=== PATIENT | male | born 1930 | race Caucasian/White ===

== ENCOUNTER 2017-09-04 13:34 | Emergency (ER) | payer MEDICARE ==
[2017-09-04 13:45] VITALS: RESP 18; TEMP 98.6
[2017-09-04] MEDS ORDERED: HYDROcodone/APAP 5-325MG 1 EACH TAB PO STA (14:17)
--- NOTE | 2017-09-04 14:17 | ED ---
Male Urogenital HPI - General Chief complaint: Urogenital Stated complaint: male Time Seen by Provider: 09/04/17 14:03 Source: patient, family Mode of arrival: wheelchair Limitations: no limitations - History of Present Illness Initial comments: 86-year-old male presenting with difficulty urinating, burning with urination, suprapubic abdominal pain. Patient states symptoms began last night. States he has been able to urinate but only a small amount. Admits to 25 year history of prostate cancer. Denies any current or previous chemotherapy or radiation. Denies history of urinary retention. States his urologist is Dr. Porras. [facility] here. On review of systems as noted the patient has had progressively worsening shortness of breath and states he is unable to walk distances he could previously secondary dyspnea. He denies history of COPD, CHF, DVT or PE. Denies chest pain, orthopnea, lower extremity swelling. Admits to a worsening productive cough. - Related Data Allergies Allergy/AdvReac Type Severity Reaction Status Date / Time aspirin Allergy Abdominal Verified 09/04/17 13:45 Pain Review of Systems ROS Statement: Those systems with pertinent positive or pertinent negative responses have been documented in the HPI. Review of Systems Constitutional: Denies fever, chills Eyes: Denies change in vision, Denies pain Ears, nose, mouth, throat: Denies headaches, Denies sore throat Cardiovascular: Denies chest pain. Denies palpitations Respiratory: Positive cough and shortness of breath Gastrointestinal: Positive abdominal pain. Denies nausea, vomiting, diarrhea. Genitourinary: Denies hematuria, Positive dysuria, frequency, hesitancy. Musculoskeletal: Denies pain, Denies swelling Integumentary: Denies rash Neurological: Denies headache, focal weakness, focal numbness Psychiatric: Denies anxiety, Denies depression Hematologic/Lymphatic: Denies easy bleeding or bruising ROS Other: All systems not noted in ROS Statement are negative. Past Medical History Past Medical History: Cancer, Prostate Disorder Additional Past Medical History / Comment(s): prostate ca History of Any Multi-Drug Resistant Organisms: None Reported Past Surgical History: Hernia Repair Past Psychological History: No Psychological Hx Reported Smoking Status: Light tobacco smoker Past Alcohol Use History: Daily Past Drug Use History: None Reported General Exam - General Exam Comments Initial Comments: General: Awake, alert, No acute Distress HENT: Normocephalic. Atraumatic Eyes: PERRL. EOMI. No scleral icterus. No injected conjunctiva Neck: Full ROM Chest/Lungs: Clear to auscultation bilaterally. No wheezing, rhonchi, or rales Cardiac: Regular rate, rhythm. No murmurs or rubs Abdomen/GI: Soft. TTP suprapubic area. No rebound, guarding, or rigidity. No abdominal bruit. Positive lloyds sign bilaterally Musculoskeletal: Full ROM Skin: Warm, dry, intact Neurologic: A/Ox3, no weakness, no sensory deficit, no abnormal gait, no coordination deficit Limitations: no limitations Course Vital Signs 09/04/17 09/04/17 13:41 15:59 Temperature 98.6 F Pulse Rate 102 H 94 Respiratory 18 18 Rate Blood Pressure 139/79 162/90 O2 Sat by Pulse 93 L 97 Oximetry Medical Decision Making - Medical Decision Making 86-year-old male presenting with difficulty urinating and dysuria as well as shortness of breath. On initial exam the patient is awake, alert, and in NAD. He is tachycardic with an O2 saturation of 93%. Wells PE score 2.5. Patient found to have >900 cc for his post void residual. Age-adjusted d-dimer is not elevated. Unable to pass a coud catheter. Spoke with Dr. Porras who states he will come into the hospital. Dr. Porras at bedside used cystoscopy to pass a marques. Patient's laboratory workup shows no evidence of sepsis or infection. Family at bedside, including [id number] who is an RN at bedside. Return to ED instructions as well as primary care follow up instruction given. No further emergent workup indicated. Patient has pain medications at home and does not need any additional per family. Patient instructed on follow up with Dr. Porras as well. - Lab Data Result diagrams: 09/04/17 14:30 09/04/17 14:30 Lab Results 09/04/17 09/04/17 09/04/17 Range/Units 14:30 14:30 14:30 WBC 9.3 (3.8-10.6) k/uL RBC 5.46 (4.30-5.90) m/uL Hgb 16.6 (13.0-17.5) gm/dL Hct 50.6 (39.0-53.0) % MCV 92.7 (80.0-100.0) fL MCH 30.3 (25.0-35.0) pg MCHC 32.7 (31.0-37.0) g/dL RDW 12.6 (11.5-15.5) % Plt Count 254 (150-450) k/uL Neutrophils % 79 % Lymphocytes % 13 % Monocytes % 6 % Eosinophils % 1 % Basophils % 1 % Neutrophils # 7.3 (1.3-7.7) k/uL Lymphocytes # 1.2 (1.0-4.8) k/uL Monocytes # 0.5 (0-1.0) k/uL Eosinophils # 0.1 (0-0.7) k/uL Basophils # 0.1 (0-0.2) k/uL D-Dimer 0.66 H (<0.60) mg/L FEU Sodium 144 (137-145) mmol/L Potassium 4.6 (3.5-5.1) mmol/L Chloride 106 (98-107) mmol/L Carbon Dioxide 25 (22-30) mmol/L Anion Gap 13 mmol/L BUN 8 L (9-20) mg/dL Creatinine 0.60 L (0.66-1.25) mg/dL Est GFR (CKD-EPI)AfAm >90 (>60 ml/min/1.73 sqM) Est GFR (CKD-EPI)NonAf >90 (>60 ml/min/1.73 sqM) Glucose 121 H (74-99) mg/dL Calcium 9.8 (8.4-10.2) mg/dL Troponin I (0.000-0.034) ng/mL NT-Pro-B Natriuret Pep pg/mL Urine Color Urine Appearance (Clear) Urine pH (5.0-8.0) Ur Specific [place] (1.001-1.035) Urine Protein (Negative) Urine Glucose (UA) (Negative) Urine Ketones (Negative) Urine Blood (Negative) Urine Nitrite (Negative) Urine Bilirubin (Negative) Urine Urobilinogen (<2.0) mg/dL Ur Leukocyte Esterase (Negative) Urine RBC (0-5) /hpf Urine WBC (0-5) /hpf Urine WBC Clumps (None) /hpf Urine Mucus (None) /hpf 09/04/17 09/04/17 09/04/17 Range/Units 14:30 14:30 14:30 WBC (3.8-10.6) k/uL RBC (4.30-5.90) m/uL Hgb (13.0-17.5) gm/dL Hct (39.0-53.0) % MCV (80.0-100.0) fL MCH (25.0-35.0) pg MCHC (31.0-37.0) g/dL RDW (11.5-15.5) % Plt Count (150-450) k/uL Neutrophils % % Lymphocytes % % Monocytes % % Eosinophils % % Basophils % % Neutrophils # (1.3-7.7) k/uL Lymphocytes # (1.0-4.8) k/uL Monocytes # (0-1.0) k/uL Eosinophils # (0-0.7) k/uL Basophils # (0-0.2) k/uL D-Dimer (<0.60) mg/L FEU Sodium (137-145) mmol/L Potassium (3.5-5.1) mmol/L Chloride (98-107) mmol/L Carbon Dioxide (22-30) mmol/L Anion Gap mmol/L BUN (9-20) mg/dL Creatinine (0.66-1.25) mg/dL Est GFR (CKD-EPI)AfAm (>60 ml/min/1.73 sqM) Est GFR (CKD-EPI)NonAf (>60 ml/min/1.73 sqM) Glucose (74-99) mg/dL Calcium (8.4-10.2) mg/dL Troponin I <0.012 (0.000-0.034) ng/mL NT-Pro-B Natriuret Pep 149 pg/mL Urine Color Dark Brown Urine Appearance Clear (Clear) Urine pH 5.5 (5.0-8.0) Ur Specific [place] 1.006 (1.001-1.035) Urine Protein Negative (Negative) Urine Glucose (UA) Negative (Negative) Urine Ketones Negative (Negative) Urine Blood Negative (Negative) Urine Nitrite Positive (Negative) Urine Bilirubin Negative (Negative) Urine Urobilinogen <2.0 (<2.0) mg/dL Ur Leukocyte Esterase Negative (Negative) Urine RBC 1 (0-5) /hpf Urine WBC 1 (0-5) /hpf Urine WBC Clumps Rare H (None) /hpf Urine Mucus Rare H (None) /hpf 09/04/17 14:40 EKG shows sinus rhythm with 1st degree AV block at a rate of 90 bpm with a KS interval of 254 ms. Disposition Clinical Impression: Acute urinary retention Disposition: HOME SELF-CARE Condition: Good Instructions: Marques Catheter Placement and Care (ED), Urinary Retention in Men (ED) Is patient prescribed a controlled substance at d/c from ED?: No When asked, does pt state using other controlled substances?: Yes Referrals: None,Stated [Primary Care Provider] - 1-2 days Saji Porras MD [STAFF PHYSICIAN] - 1-2 days Time of Disposition: 16:35
[2017-09-04 14:43] LABS: Basophils # (A) 0.1 k/uL (0-0.2); Basophils % (A) 1 %; Eosinophils # (A) 0.1 k/uL (0-0.7); Eosinophils % (A) 1 %; HCT 50.6 % (39.0-53.0); HGB 16.6 gm/dL (13.0-17.5); Lymphocytes # (A) 1.2 k/uL (1.0-4.8); Lymphocytes % (A) 13 %; MCH 30.3 pg (25.0-35.0); MCHC 32.7 g/dL (31.0-37.0); MCV 92.7 fL (80.0-100.0); Mean Platelet Volume 7.1; Monocytes # (A) 0.5 k/uL (0-1.0); Monocytes % (A) 6 %; Neutrophils # (A) 7.3 k/uL (1.3-7.7); Neutrophils % (A) 79 %; Platelet Count 254 k/uL (150-450); RBC 5.46 m/uL (4.30-5.90); RDW 12.6 % (11.5-15.5); WBC 9.3 k/uL (3.8-10.6)
[2017-09-04] MEDS ORDERED: LIDOCAINE URO-JET JELLY 2% 5 ML KIT URETHRAL ONE (14:45)
[2017-09-04 14:46] LABS: Appearance,Urine Clear (Clear); Bilirubin,Urine Negative (Negative); Blood,Urine Negative (Negative); Color,Urine Dark Brown; Glucose,Urine (UA) Negative (Negative); Ketones,Urine Negative (Negative); Leukocyte Esterase,Urine Negative (Negative); Mucus,Urine Rare /hpf; Nitrite,Urine Positive (Negative); PH, Urine 5.5 (5.0-8.0); Protein,Urine Negative (Negative); RBC,Urine 1 /hpf (0-5); Specific Gravity,Urine 1.006 (1.001-1.035); Urobilinogen,Urine <2.0 mg/dL (<2.0); WBC,Urine 1 /hpf (0-5)
[2017-09-04 14:54] LABS: Anion Gap 13 mmol/L; Blood Urea Nitrogen 8 mg/dL (9-20); Calcium 9.8 mg/dL (8.4-10.2); Carbon Dioxide 25 mmol/L (22-30); Chloride 106 mmol/L (98-107); Glucose 121 mg/dL (74-99); Potassium 4.6 mmol/L (3.5-5.1); Sodium 144 mmol/L (137-145)
--- NOTE | 2017-09-04 14:58 | XR ---
EXAMINATION TYPE: XR chest 2V DATE OF EXAM: 09/04/2017 COMPARISON: 05/07/2013 HISTORY: 86 year-old male shortness of breath and pain TECHNIQUE: PA and lateral views FINDINGS: Heart normal size. Atherosclerotic calcifications throughout the aorta. Pulmonary vasculature within normal limits. Strandy atelectasis in the lower lungs. Accentuated mid to lower thoracic kyphosis. No consolidation or pleural effusion seen. IMPRESSION: Some strandy lower lung areas of atelectasis. No acute process seen.
[2017-09-04 16:00] VITALS: BP 162/90; PULSE 94
--- NOTE | 2017-09-04 16:47 | P.GSCN ---
History of Present Illness Consult date: 09/04/17 History of present illness: The patient is an 86-year-old gentleman well known to me for metastatic prostate carcinoma. The patient many years ago had a localized prostate cancer but declined any treatment. Several years ago he returned with metastases. He was placed on hormonal therapy and it controlled the disease for several years over the last few years disease has progressed. He has declined more aggressive treatment other than complete androgen blockade. He has had progressive elevation of his PSA. 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 He is slowly becoming immobilized over the last year. In the last 24 hours he is gone in urine retention and presented to the emergency room. The emergency room staff was unable place a catheter and I was asked to do so. The patient has had some constipation in the last week but none recently. He has not been on any new medication such as decongestants. His back pain does not seem any worse than it was. He is somewhat immobilized but due to the pain rather than neuropathy. He denies numbness in the lower extremities. He is able to move all of his lower extremities. He still has sensation and feels as if his bladder is full. Review of Systems - Constitutional Reports chronic pain, Reports weakness - Gastrointestinal Reports abdominal pain - Genitourinary Reports as per HPI - Musculoskeletal Musculoskeleta Comment(s): The patient has chronic pain and weakness but no neuropathy Past Medical History Past Medical History: Cancer, Prostate Disorder Additional Past Medical History / Comment(s): prostate ca History of Any Multi-Drug Resistant Organisms: None Reported Past Surgical History: Hernia Repair Past Psychological History: No Psychological Hx Reported Smoking Status: Light tobacco smoker Past Alcohol Use History: Daily Past Drug Use History: None Reported Medications and Allergies Allergies Allergy/AdvReac Type Severity Reaction Status Date / Time aspirin Allergy Abdominal Verified 09/04/17 13:45 Pain Surgical - Exam Vital Signs Temp Pulse Resp BP Pulse Ox 98.6 F 102 H 18 139/79 93 L 09/04/17 13:41 09/04/17 13:41 09/04/17 13:41 09/04/17 13:41 09/04/17 13:41 - General well developed, well nourished, moderate distress - Eyes PERRL - ENT no hearing loss - Neck trachea midline - Respiratory normal expansion, normal respiratory effort - Cardiovascular Rhythm: regular - Abdomen Abdomen: soft, tender, distended - Genitourinary The bladder is distended. The penis is uncircumcised. There is rash in the groin. Both testes are small. Rectal deferred. Extremities without edema - Musculoskeletal normal posture - Psychiatric oriented to time, oriented to person, oriented to place, speech is normal, memory intact Results - Labs 09/04/17 14:30 09/04/17 14:30 Abnormal Lab Results - Last 24 Hours (Table) 09/04/17 09/04/17 09/04/17 Range/Units 14:30 14:30 14:30 D-Dimer 0.66 H (<0.60) mg/L FEU BUN 8 L (9-20) mg/dL Creatinine 0.60 L (0.66-1.25) mg/dL Glucose 121 H (74-99) mg/dL Urine WBC Clumps Rare H (None) /hpf Urine Mucus Rare H (None) /hpf Diabetes panel 09/04/17 Range/Units 14:30 Sodium 144 (137-145) mmol/L Potassium 4.6 (3.5-5.1) mmol/L Chloride 106 (98-107) mmol/L Carbon Dioxide 25 (22-30) mmol/L BUN 8 L (9-20) mg/dL Creatinine 0.60 L (0.66-1.25) mg/dL Glucose 121 H (74-99) mg/dL Calcium 9.8 (8.4-10.2) mg/dL Calcium panel 09/04/17 Range/Units 14:30 Calcium 9.8 (8.4-10.2) mg/dL Pituitary panel 09/04/17 Range/Units 14:30 Sodium 144 (137-145) mmol/L Potassium 4.6 (3.5-5.1) mmol/L Chloride 106 (98-107) mmol/L Carbon Dioxide 25 (22-30) mmol/L BUN 8 L (9-20) mg/dL Creatinine 0.60 L (0.66-1.25) mg/dL Glucose 121 H (74-99) mg/dL Calcium 9.8 (8.4-10.2) mg/dL Adrenal panel 09/04/17 Range/Units 14:30 Sodium 144 (137-145) mmol/L Potassium 4.6 (3.5-5.1) mmol/L Chloride 106 (98-107) mmol/L Carbon Dioxide 25 (22-30) mmol/L BUN 8 L (9-20) mg/dL Creatinine 0.60 L (0.66-1.25) mg/dL Glucose 121 H (74-99) mg/dL Calcium 9.8 (8.4-10.2) mg/dL Assessment and Plan Assessment: Impression: Urine retention, metastatic prostate carcinoma hormone insensitive Conditions: Catheter placement
--- NOTE | 2017-09-04 16:51 | P.PCN ---
Date of Procedure: 09/04/17 Preoperative Diagnosis: Urine retention and inability to pass catheter prostate cancer, metastatic Postoperative Diagnosis: Same, false passage Procedure(s) Performed: Cystoscopy with catheter placement, difficult Description of Procedure: The patient is in the emergency room in urine retention. The nursing staff is unable to pass catheter. I attempted a 14 and 16 coud-tip catheter but is unable to pass it into the bladder. He'll undergo cystoscopy to assess this. Her grafts patient is prepped and draped sterilely. The flexible cystoscope was introduced in the urethra is normal. INR the prosthetic urethra and on the posterior prostate there is edema and a small false passage. I move anteriorly into the bladder. Through the cystoscope I passed an 035 wire into the bladder. I cut the tip of the 16 coud-tip catheter often pass a catheter over the wire into the bladder. I inflate the balloon. A remove the wire and attached to the catheter Impression: This patient has urine retention. The possibilities include constipation, progression of the prostate cancer leading to obstruction or neurologic causes. The patient does not appear to have any significant neuropathy. His back pain is slowly aggressing but does not appear to be the major cause as his legs move easily and his age and appears to be normal. I will place him on tamsulosin 0.4 mg daily. Follow-up in the office for a voiding trial if he is interested in that.
== END 2017-09-04 16:54 | disposition home or self-care (01) ==
LOC: EC 13:34
DX: R33.9 Retention of urine, unspecified (principal); R39.198 Other difficulties with micturition; R10.9 Unspecified abdominal pain; R05 Cough; R30.0 Dysuria; R06.02 Shortness of breath; R00.0 Tachycardia, unspecified; F17.200 Nicotine dependence, unspecified, uncomplicated; Z85.46 Personal history of malignant neoplasm of prostate; Z88.6 Allergy status to analgesic agent
CPT/HCPCS: 36415; 51702; 51798; 71046; 80048; 81001; 83880; 84484; 85025; 85379; 93005; 99284

== ENCOUNTER 2019-11-11 07:11 | Emergency (ER) | payer MEDICARE ==
[2019-11-11 07:17] VITALS: RESP 18; TEMP 98.5
[2019-11-11] MEDS ORDERED: LIDOCAINE URO-JET JELLY 2% 5 ML KIT URETHRAL ONE ×2 (07:26→07:52)
[2019-11-11] MEDS ORDERED: SODIUM CHLORIDE 0.9% 1,000 ML IV STA (07:27)
--- NOTE | 2019-11-11 07:30 | ED ---
Abdominal Pain HPI - General Chief Complaint: Abdominal Pain Stated Complaint: Abdominal Pain Time Seen by Provider: 11/11/19 07:15 Source: patient, EMS, RN notes reviewed, old records reviewed Mode of arrival: EMS Limitations: no limitations - History of Present Illness Initial Comments: Elmo is an 89-year-old male who presents emergency Department today with complaints of right lower quadrant abdominal pain for the past 2 days. She reports that over the past evening he has been having some lower abdominal pain as well as some difficulty with urination. He reports that when he tries to urinate he is only able to "dribble out". Patient reports that he has had a history of prostate cancer in remission. Patient reports that his also history of urinary infections. Patient states that he's had no recent fevers or chills. Denies any nausea or vomiting. He reports he did have a bowel movement yesterday which was normal. - Related Data Allergies Allergy/AdvReac Type Severity Reaction Status Date / Time aspirin Allergy Abdominal Verified 11/11/19 07:13 Pain Review of Systems ROS Statement: Those systems with pertinent positive or pertinent negative responses have been documented in the HPI. ROS Other: All systems not noted in ROS Statement are negative. Past Medical History Past Medical History: Cancer, Prostate Disorder Additional Past Medical History / Comment(s): prostate ca History of Any Multi-Drug Resistant Organisms: None Reported Past Surgical History: Hernia Repair Past Psychological History: No Psychological Hx Reported Smoking Status: Light tobacco smoker Past Alcohol Use History: Daily Past Drug Use History: None Reported General Exam - General Exam Comments Initial Comments: Alert and oriented a 89-year-old male. Limitations: no limitations General appearance: alert, in no apparent distress Head exam: Present: atraumatic, normocephalic, normal inspection Eye exam: Present: normal appearance, PERRL, EOMI. Absent: scleral icterus, conjunctival injection, periorbital swelling ENT exam: Present: normal exam, mucous membranes moist Neck exam: Present: normal inspection. Absent: tenderness, meningismus, lymphadenopathy Respiratory exam: Present: normal lung sounds bilaterally. Absent: respiratory distress, wheezes, rales, rhonchi, stridor Cardiovascular Exam: Present: regular rate, normal rhythm, normal heart sounds. Absent: systolic murmur, diastolic murmur, rubs, gallop, clicks GI/Abdominal exam: Present: distended (suprapubic tenderness and firmness), normal bowel sounds. Absent: soft, tenderness, guarding, rebound, rigid Back exam: Present: normal inspection Neurological exam: Present: alert, oriented X3, CN II-XII intact Psychiatric exam: Present: normal affect, normal mood Skin exam: Present: warm, dry, intact, normal color. Absent: rash Course Vital Signs 11/11/19 11/11/19 11/11/19 07:13 07:58 08:45 Temperature 98.5 F Pulse Rate 95 72 70 Respiratory 18 18 18 Rate Blood Pressure 182/98 128/86 147/85 O2 Sat by Pulse 95 95 95 Oximetry - Reevaluation(s) Reevaluation #1: 11/11/19 07:58 Patient had Payne catheter placed and approximately 700 mL of urine was removed. Patient reports relief of his pain and symptoms at this time. Abdomen is soft. Medical Decision Making - Medical Decision Making Patient is a pleasant 89-year-old male presents for his from today with lower abdominal pain and urinary retention symptoms for the past 2 days. At this time Patient had a very full distended bladder. A Payne catheter was initiated approximately 800 mL of urine was drained. Urinalysis showed no significant sign of infection and just red blood cells likely from traumatic catheteriza tion. Patient did tolerate a catheterization procedure well. Patient has CBC was unremarkable. CMP showed mildly elevated BUN/creatinine. He was given a liter bolus. He did complains of no further pain after the Payne catheter was removed. Discussed return parameters and close follow-up with PCP and urology. Patient reports that he is urologist is Dr. Landry any sedative previous history of prostate cancer. I discussed to follow-up with Dr. Landry for Payne catheter removal next week. - Lab Data Result diagrams: 11/11/19 07:52 11/11/19 07:52 Lab Results 11/11/19 11/11/19 11/11/19 Range/Units 07:52 07:52 07:52 WBC 9.7 (3.8-10.6) k/uL RBC 4.58 (4.30-5.90) m/uL Hgb 14.3 (13.0-17.5) gm/dL Hct 42.6 (39.0-53.0) % MCV 93.1 (80.0-100.0) fL MCH 31.3 (25.0-35.0) pg MCHC 33.6 (31.0-37.0) g/dL RDW 12.5 (11.5-15.5) % Plt Count 248 (150-450) k/uL Neutrophils % 81 % Lymphocytes % 9 % Monocytes % 7 % Eosinophils % 2 % Basophils % 0 % Neutrophils # 7.9 H (1.3-7.7) k/uL Lymphocytes # 0.9 L (1.0-4.8) k/uL Monocytes # 0.7 (0-1.0) k/uL Eosinophils # 0.2 (0-0.7) k/uL Basophils # 0.0 (0-0.2) k/uL Sodium 138 (137-145) mmol/L Potassium 3.9 (3.5-5.1) mmol/L Chloride 104 (98-107) mmol/L Carbon Dioxide 25 (22-30) mmol/L Anion Gap 9 mmol/L BUN 21 H (9-20) mg/dL Creatinine 1.57 H (0.66-1.25) mg/dL Est GFR (CKD-EPI)AfAm 45 (>60 ml/min/1.73 sqM) Est GFR (CKD-EPI)NonAf 39 (>60 ml/min/1.73 sqM) Glucose 135 H (74-99) mg/dL Calcium 9.0 (8.4-10.2) mg/dL Total Bilirubin 0.8 (0.2-1.3) mg/dL AST 20 (17-59) U/L ALT 15 (4-49) U/L Alkaline Phosphatase 65 (38-126) U/L Total Protein 6.2 L (6.3-8.2) g/dL Albumin 3.3 L (3.5-5.0) g/dL Amylase 49 (30-110) U/L Lipase 101 (23-300) U/L Urine Color Light Yellow Urine Appearance Clear (Clear) Urine pH 5.0 (5.0-8.0) Ur Specific [place] 1.005 (1.001-1.035) Urine Protein Negative (Negative) Urine Glucose (UA) Negative (Negative) Urine Ketones Negative (Negative) Urine Blood Moderate H (Negative) Urine Nitrite Negative (Negative) Urine Bilirubin Negative (Negative) Urine Urobilinogen <2.0 (<2.0) mg/dL Ur Leukocyte Esterase Negative (Negative) Urine RBC 4 (0-5) /hpf Urine WBC 1 (0-5) /hpf Disposition Clinical Impression: Urinary retention Disposition: HOME SELF-CARE Condition: Good Instructions (If sedation given, give patient instructions): Payne Catheter Placement and Care (ED) Additional Instructions: Patient should have the Payne catheter remaining in place until seen by urology to have a removed next week. Return to emergency department if any alarming sig ns or symptoms occur. Is patient prescribed a controlled substance at d/c from ED?: No Referrals: Nonstaff,Physician [REFERRING] - 1-2 days Time of Disposition: 08:58
[2019-11-11 08:05] LABS: Basophils % (A) 0 %; Eosinophils # (A) 0.2 k/uL (0-0.7); Eosinophils % (A) 2 %; HCT 42.6 % (39.0-53.0); HGB 14.3 gm/dL (13.0-17.5); Lymphocytes # (A) 0.9 k/uL (1.0-4.8); Lymphocytes % (A) 9 %; MCH 31.3 pg (25.0-35.0); MCHC 33.6 g/dL (31.0-37.0); MCV 93.1 fL (80.0-100.0); Mean Platelet Volume 7.2; Monocytes # (A) 0.7 k/uL (0-1.0); Monocytes % (A) 7 %; Neutrophils # (A) 7.9 k/uL (1.3-7.7); Neutrophils % (A) 81 %; Platelet Count 248 k/uL (150-450); RBC 4.58 m/uL (4.30-5.90); RDW 12.5 % (11.5-15.5); WBC 9.7 k/uL (3.8-10.6)
[2019-11-11 08:15] LABS: Albumin 3.3 g/dL (3.5-5.0); Potassium 3.9 mmol/L (3.5-5.1); Total Bilirubin 0.8 mg/dL (0.2-1.3); Total Protein 6.2 g/dL (6.3-8.2)
[2019-11-11 08:32] LABS: Appearance,Urine Clear (Clear); Bilirubin,Urine Negative (Negative); Blood,Urine Moderate (Negative); Color,Urine Light Yellow; Glucose,Urine (UA) Negative (Negative); Ketones,Urine Negative (Negative); Leukocyte Esterase,Urine Negative (Negative); Nitrite,Urine Negative (Negative); Protein,Urine Negative (Negative); RBC,Urine 4 /hpf (0-5); Specific Gravity,Urine 1.005 (1.001-1.035); Urobilinogen,Urine <2.0 mg/dL (<2.0); WBC,Urine 1 /hpf (0-5)
[2019-11-11 08:46] VITALS: BP 147/85; PULSE 70
== END 2019-11-11 09:00 | disposition home or self-care (01) ==
LOC: EC 07:11
DX: R33.9 Retention of urine, unspecified (principal); R31.9 Hematuria, unspecified; R10.31 Right lower quadrant pain; R79.89 Other specified abnormal findings of blood chemistry; F17.210 Nicotine dependence, cigarettes, uncomplicated; Z85.46 Personal history of malignant neoplasm of prostate; Z88.6 Allergy status to analgesic agent
CPT/HCPCS: 36415; 51702; 80053; 81001; 82150; 83690; 85025; 96360; 99285

== ENCOUNTER 2021-04-19 06:11 | Inpatient (IN) | payer MEDICARE ==
[2021-04-19] MEDS ORDERED: LIDOCAINE URO-JET JELLY 2% 5 ML KIT URETHRAL STA (06:50)
--- NOTE | 2021-04-19 06:58 | ED ---
General Adult HPI - General Chief complaint: Urogenital Stated complaint: Catheter complications Time Seen by Provider: 04/19/21 06:37 Source: patient, family, RN notes reviewed Mode of arrival: wheelchair Limitations: no limitations - History of Present Illness Initial comments: 89-year-old male with a past medical history of prostate cancer presents to the emergency room for a chief complaint of urinary retention. Patient's son who is an RN removed his Payne catheter 18 hours ago and could not replace it. He has not had a void in 16-18 hours. Patient is having some abdominal pain and burning.Patient has no other complaints at this time including shortness of breath, chest pain, nausea or vomiting, headache, or visual changes. - Related Data Allergies Allergy/AdvReac Type Severity Reaction Status Date / Time aspirin Allergy Abdominal Verified 04/19/21 06:22 Pain Review of Systems ROS Statement: Those systems with pertinent positive or pertinent negative responses have been documented in the HPI. ROS Other: All systems not noted in ROS Statement are negative. Past Medical History Past Medical History: Cancer, Prostate Disorder Additional Past Medical History / Comment(s): prostate ca History of Any Multi-Drug Resistant Organisms: None Reported Past Surgical History: Hernia Repair Past Psychological History: No Psychological Hx Reported Smoking Status: Former smoker Past Alcohol Use History: Occasional Past Drug Use History: None Reported General Exam Limitations: no limitations General appearance: alert, in no apparent distress Head exam: Present: atraumatic Eye exam: Present: normal appearance, PERRL, EOMI. Absent: scleral icterus, conjunctival injection ENT exam: Present: normal exam, mucous membranes moist Neck exam: Present: normal inspection, full ROM. Absent: tenderness Respiratory exam: Present: normal lung sounds bilaterally. Absent: respiratory distress, wheezes Cardiovascular Exam: Present: regular rate, normal rhythm, normal heart sounds GI/Abdominal exam: Present: soft, normal bowel sounds. Absent: distended, tenderness Neurological exam: Present: alert Course Vital Signs 04/19/21 04/19/21 04/19/21 06:23 07:23 07:48 Temperature 98 F Pulse Rate 132 H 108 H 98 Respiratory 18 18 16 Rate Blood Pressure 113/75 83/57 91/57 O2 Sat by Pulse 98 96 100 Oximetry 04/19/21 08:06 Temperature Pulse Rate 95 Respiratory 18 Rate Blood Pressure 91/53 O2 Sat by Pulse 100 Oximetry EKG Findings - EKG Comments: EKG Findings:: sinus tachycardia, ventricular rate 111, SD interval 214, QTc 511, 1st degree AV block Medical Decision Making - Medical Decision Making Presents tachycardic. Blood pressure marginally low. He presents for replacement of Payne catheter. Catheter was removed 18 hours ago and his son could not get it back in so brought him to the emergency room. We were able to replace his catheter and get a new urine sample. This did reveal evidence of infection at 8:30. Antibiotics were started within 3 hours of sepsis diagnosis at that time. States leukocytosis with a left shift and a mild acidosis of 2.6. Chest x-ray did show some mild pneumonia possible however no cough or upper respiratory symptoms. Blood and urine cultures were obtained and patient was started on Rocephin. Patient was given 30 mL/kg of fluids based on his ideal body weight of 75.[address] Bolaños who does except admission. Khai discussed with patient and son. 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 He is a DO NOT RESUSCITATE and does not want lifesaving measures. He does not want to consider central line or aggressive measures at this time. - Lab Data Result diagrams: 04/19/21 07:16 04/19/21 07:16 Lab Results 04/19/21 04/19/21 04/19/21 Range/Units 07:16 07:16 07:16 WBC 22.2 H (3.8-10.6) k/uL RBC 5.02 (4.30-5.90) m/uL Hgb 14.4 (13.0-17.5) gm/dL Hct 44.3 (39.0-53.0) % MCV 88.2 (80.0-100.0) fL MCH 28.7 (25.0-35.0) pg MCHC 32.5 (31.0-37.0) g/dL RDW 12.9 (11.5-15.5) % Plt Count 360 (150-450) k/uL MPV 8.5 Neutrophils % 85 % Lymphocytes % 5 % Monocytes % 9 % Eosinophils % 0 % Basophils % 0 % Neutrophils # 18.8 H (1.3-7.7) k/uL Lymphocytes # 1.1 (1.0-4.8) k/uL Monocytes # 2.0 H (0-1.0) k/uL Eosinophils # 0.0 (0-0.7) k/uL Basophils # 0.1 (0-0.2) k/uL Sodium 132 L (137-145) mmol/L Potassium 4.5 (3.5-5.1) mmol/L Chloride 99 (98-107) mmol/L Carbon Dioxide 21 L (22-30) mmol/L Anion Gap 12 mmol/L BUN 26 H (9-20) mg/dL Creatinine 1.71 H (0.66-1.25) mg/dL Est GFR (CKD-EPI)AfAm 40 (>60 ml/min/1.73 sqM) Est GFR (CKD-EPI)NonAf 35 (>60 ml/min/1.73 sqM) Glucose 150 H (74-99) mg/dL Plasma Lactic Acid Tommy (0.7-2.0) mmol/L Calcium 9.2 (8.4-10.2) mg/dL Total Bilirubin 1.5 H (0.2-1.3) mg/dL AST 27 (17-59) U/L ALT 19 (4-49) U/L Alkaline Phosphatase 96 (38-126) U/L Total Protein 6.9 (6.3-8.2) g/dL Albumin 3.3 L (3.5-5.0) g/dL Urine Color Yellow Urine Appearance Turbid (Clear) Urine pH 7.0 (5.0-8.0) Ur Specific [place] 1.015 (1.001-1.035) Urine Protein 3+ H (Negative) Urine Glucose (UA) Negative (Negative) Urine Ketones Negative (Negative) Urine Blood Large H (Negative) Urine Nitrite Negative (Negative) Urine Bilirubin Negative (Negative) Urine Urobilinogen <2.0 (<2.0) mg/dL Ur Leukocyte Esterase Large H (Negative) Urine RBC >182 H (0-5) /hpf Urine WBC >182 H (0-5) /hpf Urine WBC Clumps Many H (None) /hpf Ur Squamous Epith Cells 1 (0-4) /hpf Urine Bacteria Occasional H (None) /hpf 04/19/21 Range/Units 08:27 WBC (3.8-10.6) k/uL RBC (4.30-5.90) m/uL Hgb (13.0-17.5) gm/dL Hct (39.0-53.0) % MCV (80.0-100.0) fL MCH (25.0-35.0) pg MCHC (31.0-37.0) g/dL RDW (11.5-15.5) % Plt Count (150-450) k/uL MPV Neutrophils % % Lymphocytes % % Monocytes % % Eosinophils % % Basophils % % Neutrophils # (1.3-7.7) k/uL Lymphocytes # (1.0-4.8) k/uL Monocytes # (0-1.0) k/uL Eosinophils # (0-0.7) k/uL Basophils # (0-0.2) k/uL Sodium (137-145) mmol/L Potassium (3.5-5.1) mmol/L Chloride (98-107) mmol/L Carbon Dioxide (22-30) mmol/L Anion Gap mmol/L BUN (9-20) mg/dL Creatinine (0.66-1.25) mg/dL Est GFR (CKD-EPI)AfAm (>60 ml/min/1.73 sqM) Est GFR (CKD-EPI)NonAf (>60 ml/min/1.73 sqM) Glucose (74-99) mg/dL Plasma Lactic Acid Tommy 2.6 H* (0.7-2.0) mmol/L Calcium (8.4-10.2) mg/dL Total Bilirubin (0.2-1.3) mg/dL AST (17-59) U/L ALT (4-49) U/L Alkaline Phosphatase (38-126) U/L Total Protein (6.3-8.2) g/dL Albumin (3.5-5.0) g/dL Urine Color Urine Appearance (Clear) Urine pH (5.0-8.0) Ur Specific [place] (1.001-1.035) Urine Protein (Negative) Urine Glucose (UA) (Negative) Urine Ketones (Negative) Urine Blood (Negative) Urine Nitrite (Negative) Urine Bilirubin (Negative) Urine Urobilinogen (<2.0) mg/dL Ur Leukocyte Esterase (Negative) Urine RBC (0-5) /hpf Urine WBC (0-5) /hpf Urine WBC Clumps (None) /hpf Ur Squamous Epith Cells (0-4) /hpf Urine Bacteria (None) /hpf Disposition Clinical Impression: UTI (urinary tract infection), Leukocytosis, Lactic acidosis, Sepsis Disposition: ADMITTED IP TO THIS HOSP Referrals: Mathew Butcher MD [Primary Care Provider] - 1-2 days
[2021-04-19] MEDS ORDERED: SODIUM CHLORIDE 0.9% 1,000 ML IV STA ×2 (07:19→08:20)
[2021-04-19 07:44] LABS: Basophils # (A) 0.1 k/uL (0-0.2); Basophils % (A) 0 %; Eosinophils % (A) 0 %; HCT 44.3 % (39.0-53.0); HGB 14.4 gm/dL (13.0-17.5); Lymphocytes # (A) 1.1 k/uL (1.0-4.8); Lymphocytes % (A) 5 %; MCH 28.7 pg (25.0-35.0); MCHC 32.5 g/dL (31.0-37.0); MCV 88.2 fL (80.0-100.0); Mean Platelet Volume 8.5; Monocytes % (A) 9 %; Neutrophils # (A) 18.8 k/uL (1.3-7.7); Neutrophils % (A) 85 %; Platelet Count 360 k/uL (150-450); RBC 5.02 m/uL (4.30-5.90); RDW 12.9 % (11.5-15.5); WBC 22.2 k/uL (3.8-10.6)
[2021-04-19 07:54] LABS: Albumin 3.3 g/dL (3.5-5.0); Calcium 9.2 mg/dL (8.4-10.2); Potassium 4.5 mmol/L (3.5-5.1); Total Bilirubin 1.5 mg/dL (0.2-1.3); Total Protein 6.9 g/dL (6.3-8.2)
[2021-04-19 08:28] LABS: Appearance,Urine Turbid (Clear); Bacteria,Urine Occasional /hpf; Bilirubin,Urine Negative (Negative); Blood,Urine Large (Negative); Color,Urine Yellow; Glucose,Urine (UA) Negative (Negative); Ketones,Urine Negative (Negative); Leukocyte Esterase,Urine Large (Negative); Nitrite,Urine Negative (Negative); Protein,Urine 3+ (Negative); RBC,Urine >182 /hpf (0-5); Specific Gravity,Urine 1.015 (1.001-1.035); Squamous Epithelial Cell,Urine 1 /hpf (0-4); Urobilinogen,Urine <2.0 mg/dL (<2.0); WBC,Urine >182 /hpf (0-5)
--- NOTE | 2021-04-19 08:46 | XR ---
EXAMINATION TYPE: XR chest 2V DATE OF EXAM: 04/19/2021 COMPARISON: Chest x-ray 09/04/2017 HISTORY: Cough, shortness of breath TECHNIQUE: Frontal and lateral views of the chest are obtained. FINDINGS: There is patchy density present along the left lower lobe. Prominent lung volume could be indicative of underlying COPD. Aorta is dense. Suspect there are coronary artery calcifications. Bron chial wall thickening is present. The cardiac silhouette size is within normal limits. The osseous structures are intact. Patient is rotated. IMPRESSION: Correlate for bronchitis, there may be basilar pneumonia versus atelectasis, follow-up s uggested
[2021-04-19] MEDS ORDERED: cefTRIAXone IN SWFI 1,000 MG/10 ML SYRINGE IVP STA ×2 (09:24→10:41)
[2021-04-19] MEDS ORDERED: SODIUM CHLORIDE 0.9% 500 ML 500 ML IV STA (09:24)
[2021-04-19] MEDS ORDERED: NALOXONE 0.4 MG/ML 1 ML VIAL IV PRN (09:49)
[2021-04-19] MEDS ORDERED: ACETAMINOPHEN TAB 325 MG TAB PO PRN (09:49)
[2021-04-19] MEDS: SODIUM CHLORIDE 0.9% 1,000 ML IV SCH ×2 (10:41→20:37)
[2021-04-19] MEDS: NON FORMULARY DRUG (Mirabegron [Myrbetriq] 50 MG Tablet) PO SCH (14:11)
[2021-04-19] MEDS: CYANOCOBALAMIN 500 MCG TAB PO SCH (14:14)
[2021-04-19] MEDS: TAMSULOSIN 0.4 MG CAP.ER.24H PO SCH (14:14)
[2021-04-19] MEDS: HYDROcodone/APAP 5-325MG 1 EACH TAB PO SCH ×2 (16:12→20:37)
[2021-04-19] MEDS: BICALUTAMIDE 50 MG TAB PO SCH (18:00)
[2021-04-19] MEDS ORDERED: NA PHOS,M-B/NA PHOS,DI-BA 133 ML ENEMA RECTAL PRN (19:00)
[2021-04-19] MEDS ORDERED: MELATONIN 3 MG TABLET PO PRN (19:00)
[2021-04-19] MEDS ORDERED: ONDANSETRON 4 MG/2 ML VIAL IVP PRN (19:00)
[2021-04-19] MEDS ORDERED: LORazepam 0.5 MG TAB PO PRN (19:00)
[2021-04-19] MEDS ORDERED: CALCIUM CARBONATE 500 MG CHEWABLE PO PRN (19:00)
[2021-04-19] MEDS ORDERED: LACTULOSE 20 GM/30 ML CUP PO PRN (19:00)
--- NOTE | 2021-04-19 19:05 | P.HPIM ---
History of Present Illness H&P Date: 04/19/21 Chief Complaint: Burning in the urine History of presenting complaint: This is a very pleasant 89-year-old patient who is the son and [id number]. Chronic stable medical conditions include BPH, vitamin B12 deficiency, hard of hearing and does use a walker to baseline. Patient does have a chronic Payne catheter. That is changed intermittently. Patient has been complaining of burning in his penis for last few days. Decreased appetite. No obvious fever and chills. No change in bowel habits. Yesterday his son was not able to place the Payne catheter bag. Presented to the ER. Urine up to be rather infected appearing. Started on IV ceftriaxone. Catheter was replaced. Urine output is somewhat bloody. Patient is accompanied by his daughter. Hard of hearing Review of systems: GEN.: Tired decreased appetite EYES: None HEENT: Hard of hearing NECK: None RESPIRATORY: None CARDIOVASCULAR: None GASTROINTESTINAL: None GENITOURINARY: As above MUSCULOSKELETAL: Some joint pains LYMPHATICS: None HEMATOLOGICAL: None PSYCHIATRY: None NEUROLOGICAL: Does use a walker Past medical history to include: BPH, urine outflow obstruction with chronic Payne, B12 deficiency, hard of hearing, gait dysfunction uses a walker Social history: This decide and [id number]. Alcohol occasional. Former smoker. Family history: Reviewed, noncontributory to presentation Physical examination: VITAL SIGNS: 98, 98, 16, 91/57, 100% on room air GENERAL: BMI 24.4, reclining in bed, slightly uncomfortable. EYES: Pupils equal. Conjunctiva normal. HEENT: External appearance of nose and ears normal, oral cavity grossly normal hard of hearing. NECK: JVD not raised; masses not palpable. HEART: First and second heart sounds are normal; no edema. LUNGS: Respiratory rate normal; decreased breath sounds. ABDOMEN: Soft, nontender, liver spleen not palpable, no masses palpable. Payne catheter with some bloody urine in the bag PSYCH: Alert and oriented x3; mood and affect slightly anxiousl. MUSCULAR skeletal: Evidence of OA especially the hands NEUROLOGICAL: Cranial nerves grossly intact; no facial asymmetry, power and sensation grossly intact. LYMPHATICS: No lymph nodes palpable in the axilla and neck INVESTIGATIONS, reviewed in the clinical context: White count 22.2 hemoglobin 14.4 platelets 360 sodium 132 potassium 4.5 BUN 26 creatinine 1.71 lactic acid 2.6 UA positive for blood, no questions, WBC, RBC, Coronavirus [PCR]: Not detected EKG tracing personally reviewed by me-sinus tachycardia. Grade 111 Chest x-ray film personally reviewed by me-some interstitial prominence Assessment and plan: -Acute UTI with sepsis secondary to Payne catheter. IV ceftriaxone. IV fluids -Renal failure. Acute versus chronic. Check renal ultrasound. Follow labs IV fluids -Anorexia likely from underlying UTI Encourage oral intake -Vitamin B-12 deficiency B12 supplement -BPH with urine outflow obstruction Patient has chronic Payne catheter that was replaced today. -Acute hematuria likely traumatic from Payne catheter placement Follow H&H and clinically IV fluids. IV ceftriaxone. Follow H&H. Add Ensure. Care was discussed with the patient and the daughter the bedside. Questions answered. Past Medical History Past Medical History: Cancer, Prostate Disorder Additional Past Medical History / Comment(s): prostate ca History of Any Multi-Drug Resistant Organisms: None Reported Past Surgical History: Hernia Repair Past Psychological History: No Psychological Hx Reported Smoking Status: Former smoker Past Alcohol Use History: Occasional Past Drug Use History: None Reported Medications and Allergies Home Medications Medication Instructions Recorded Confirmed Type Bicalutamide [Casodex] 50 mg PO DAILY 04/19/21 04/19/21 History Cyanocobalamin (Vitamin B-12) 1,000 mcg PO DAILY 04/19/21 04/19/21 History [Vitamin B-12] Furosemide [Lasix] 20 mg PO Q48H 04/19/21 04/19/21 History HYDROcodone/APAP 5-325MG [Imbler 1 tab PO TID 04/19/21 04/19/21 History 5-325] Mirabegron [Myrbetriq] 50 mg PO DAILY 04/19/21 04/19/21 History Tamsulosin [Flomax] 0.8 mg PO DAILY 04/19/21 04/19/21 History Allergies Allergy/AdvReac Type Severity Reaction Status Date / Time aspirin Allergy Abdominal Verified 04/19/21 10:33 Pain Physical Exam Vitals: Vital Signs Temp Pulse Resp BP Pulse Ox 04/19/21 10:27 72 16 104/64 04/19/21 08:06 95 18 91/53 100 04/19/21 07:48 98 16 91/57 100 04/19/21 07:23 108 H 18 83/57 96 04/19/21 06:23 98 F 132 H 18 113/75 98 Intake and Output 04/18/21 04/19/21 04/19/21 22:59 06:59 14:59 Other: Weight 77.111 kg Results CBC & Chem 7: 04/19/21 07:16 04/19/21 07:16 Labs: Abnormal Lab Results - Last 24 Hours (Table) 04/19/21 04/19/21 04/19/21 Range/Units 07:16 07:16 07:16 WBC 22.2 H (3.8-10.6) k/uL Neutrophils # 18.8 H (1.3-7.7) k/uL Monocytes # 2.0 H (0-1.0) k/uL Sodium 132 L (137-145) mmol/L Carbon Dioxide 21 L (22-30) mmol/L BUN 26 H (9-20) mg/dL Creatinine 1.71 H (0.66-1.25) mg/dL Glucose 150 H (74-99) mg/dL Plasma Lactic Acid Tommy (0.7-2.0) mmol/L Total Bilirubin 1.5 H (0.2-1.3) mg/dL Albumin 3.3 L (3.5-5.0) g/dL Urine Protein 3+ H (Negative) Urine Blood Large H (Negative) Ur Leukocyte Esterase Large H (Negative) Urine RBC >182 H (0-5) /hpf Urine WBC >182 H (0-5) /hpf Urine WBC Clumps Many H (None) /hpf Urine Bacteria Occasional H (None) /hpf 04/19/21 Range/Units 08:27 WBC (3.8-10.6) k/uL Neutrophils # (1.3-7.7) k/uL Monocytes # (0-1.0) k/uL Sodium (137-145) mmol/L Carbon Dioxide (22-30) mmol/L BUN (9-20) mg/dL Creatinine (0.66-1.25) mg/dL Glucose (74-99) mg/dL Plasma Lactic Acid Tommy 2.6 H* (0.7-2.0) mmol/L Total Bilirubin (0.2-1.3) mg/dL Albumin (3.5-5.0) g/dL Urine Protein (Negative) Urine Blood (Negative) Ur Leukocyte Esterase (Negative) Urine RBC (0-5) /hpf Urine WBC (0-5) /hpf Urine WBC Clumps (None) /hpf Urine Bacteria (None) /hpf
--- NOTE | 2021-04-19 23:05 | US ---
EXAMINATION TYPE: US kidneys/renal and bladder DATE OF EXAM: 04/19/2021 COMPARISON: NONE CLINICAL HISTORY: Abnormal kidney function. Exam done portable EXAM MEASUREMENTS: Right Kidney: 11.3 x 5.9 x 5.5 cm Left Kidney: 10.6 x 5.9 x 4.7 cm Right Kidney: hydronephrosis Left Kidney: hydronephrosis Bladder: not distended, marques catheter IMPRESSION: There is moderate bilateral hydronephrosis. No evidence of a renal mass.
[2021-04-20] MEDS: SODIUM CHLORIDE 0.9% 1,000 ML IV SCH ×2 (02:18→09:03)
[2021-04-20 04:57] LABS: Basophils % (A) 0 %; Eosinophils # (A) 0.1 k/uL (0-0.7); Eosinophils % (A) 1 %; HCT 36.6 % (39.0-53.0); Hypochromasia Slight; Lymphocytes # (A) 1.2 k/uL (1.0-4.8); Lymphocytes % (A) 9 %; MCH 28.2 pg (25.0-35.0); Mean Platelet Volume 8.3; Monocytes # (A) 1.6 k/uL (0-1.0); Monocytes % (A) 12 %; Neutrophils # (A) 10.2 k/uL (1.3-7.7); Neutrophils % (A) 77 %; Platelet Count 232 k/uL (150-450); RBC 4.02 m/uL (4.30-5.90); RDW 12.5 % (11.5-15.5); WBC 13.3 k/uL (3.8-10.6)
[2021-04-20 05:01] LABS: HGB 11.4 gm/dL (13.0-17.5)
[2021-04-20 05:06] LABS: African American GFR (CKD) 60 (>60 ml/min/1.73 sqM); Anion Gap 8 mmol/L; Blood Urea Nitrogen 23 mg/dL (9-20); Calcium 8.3 mg/dL (8.4-10.2); Carbon Dioxide 21 mmol/L (22-30); Chloride 108 mmol/L (98-107); Glucose 105 mg/dL (74-99); Non-African American GFR(CKD) 51 (>60 ml/min/1.73 sqM); Sodium 137 mmol/L (137-145)
[2021-04-20] MEDS: HYDROcodone/APAP 5-325MG 1 EACH TAB PO SCH ×3 (08:43→21:48)
[2021-04-20] MEDS: NON FORMULARY DRUG (Mirabegron [Myrbetriq] 50 MG Tablet) PO SCH (08:44)
[2021-04-20] MEDS ORDERED: cefTRIAXone IN SWFI 1,000 MG/10 ML SYRINGE IVP SCH (09:00)
[2021-04-20] MEDS: BICALUTAMIDE 50 MG TAB PO SCH (09:02)
[2021-04-20] MEDS: TAMSULOSIN 0.4 MG CAP.ER.24H PO SCH ×2 (09:03→09:10)
[2021-04-20] MEDS: CYANOCOBALAMIN 500 MCG TAB PO SCH (09:03)
--- NOTE | 2021-04-20 13:52 | P.PN ---
Progress Note - Text Progress Note Date: 04/20/21 Chief Complaint: Burning in the urine History of presenting complaint: This is a very pleasant 89-year-old patient who is the son and [id number]. Chronic stable medical conditions include BPH, vitamin B12 deficiency, hard of hearing and does use a walker to baseline. Patient does have a chronic Payne catheter. That is changed intermittently. Patient has been complaining of burning in his penis for last few days. Decreased appetite. No obvious fever and chills. No change in bowel habits. Yesterday his son was not able to place the Payne catheter bag. Presented to the ER. Urine up to be rather infected appearing. Started on IV ceftriaxone. Catheter was replaced. Urine output is somewhat bloody. Patient is accompanied by his daughter. Hard of hearing. April 20: Laying in bed. Does not like hospital for. Urinary symptoms improving. Tired Review of systems: Was done for constitutional, cardiovascular, GI, pulmonary. relevant finding as above Active Medications Acetaminophen (Acetaminophen Tab 325 Mg Tab) 650 mg PO Q6HR PRN PRN Reason: Mild Pain or Fever > 100.5 Hydrocodone Bitart/Acetaminophen (Hydrocodone/Apap 5-325mg 1 Each Tab) 1 each PO TID [facility] Last Admin: 04/20/21 08:43 Dose: Not Given Documented by: Bicalutamide (Bicalutamide 50 Mg Tab) 50 mg PO DAILY [facility] Last Admin: 04/20/21 09:02 Dose: 50 mg Documented by: Calcium Carbonate/Glycine (Calcium Carbonate 500 Mg Chewable) 1,000 mg PO Q4HR PRN PRN Reason: Dyspepsia Cyanocobalamin (Cyanocobalamin 500 Mcg Tab) 1,000 mcg PO DAILY [facility] Last Admin: 04/20/21 09:03 Dose: 1,000 mcg Documented by: Sodium Chloride (Saline 0.9%) 1,000 mls @ 130 mls/hr IV .Q7H42M [facility] Last Admin: 04/20/21 09:03 Dose: 130 mls/hr Documented by: Ceftriaxone Sodium 2 gm/ (Sodium Chloride) 50 mls @ 100 mls/hr IVPB Q24HR [facility] Last Admin: 04/20/21 09:02 Dose: 100 mls/hr Documented by: Lactulose (Lactulose 20 Gm/30 Ml Cup) 20 gm PO DAILY PRN PRN Reason: Constipation Lorazepam (Lorazepam 0.5 Mg Tab) 0.5 mg PO Q6HR PRN PRN Reason: Anxiety Melatonin (Melatonin 3 Mg Tablet) 3 mg PO HS PRN PRN Reason: Insomnia Naloxone HCl (Naloxone 0.4 Mg/Ml 1 Ml Vial) 0.2 mg IV Q2M PRN PRN Reason: Opioid Reversal Non-Formulary Medication (Mirabegron [Myrbetriq]) 50 mg PO DAILY [facility] Last Admin: 04/20/21 08:44 Dose: Not Given Documented by: Ondansetron HCl (Ondansetron 4 Mg/2 Ml Vial) 4 mg IVP Q8HR PRN PRN Reason: Nausea And Vomiting Sodium Biphosphate/Sodium Phosphate (Na Phos,M-B/Na Phos,Di-Ba 133 Ml Enema) 133 ml RECTAL ONCE PRN PRN Reason: Constipation Tamsulosin HCl (Tamsulosin 0.4 Mg Cap.Er.24h) 0.8 mg PO DAILY [facility] Last Admin: 04/20/21 09:10 Dose: 0.8 mg Documented by: Past medical history to include: BPH, urine outflow obstruction with chronic Payne, B12 deficiency, hard of hearing, gait dysfunction uses a walker Social history: This decide and [id number]. Alcohol occasional. Former smoker. Family history: Reviewed, noncontributory to presentation Physical examination: VITAL SIGNS: 97.8, 88, 17, 1 10 x 69, 95% room air GENERAL:, reclining in bed, comfortable. EYES: Pupils equal. Conjunctiva normal. HEENT: External appearance of nose and ears normal, oral cavity grossly normal hard of hearing. NECK: JVD not raised; masses not palpable. HEART: First and second heart sounds are normal; no edema. LUNGS: Respiratory rate normal; decreased breath sounds. ABDOMEN: Soft, nontender, liver spleen not palpable, no masses palpable. Payne catheter with some bloody urine in the bag PSYCH: Alert and oriented x3; mood and affect slightly anxious. MUSCULAR skeletal: Evidence of OA especially the hands INVESTIGATIONS, reviewed in the clinical context: Abdominal ultrasound: Bilateral moderate hydronephrosis Urine culture growing group D enterococcus April 20: White count 13.3 hemoglobin 11.4 platelets 232 potassium 4 BUN 23 creatinine 1.25 White count 22.2 hemoglobin 14.4 platelets 360 sodium 132 potassium 4.5 BUN 26 creatinine 1.71 lactic acid 2.6 UA positive for blood, no questions, WBC, RBC, Coronavirus [PCR]: Not detected EKG tracing personally reviewed by me-sinus tachycardia. Grade 111 Chest x-ray film personally reviewed by me-some interstitial prominence Assessment and plan: -Acute UTI with sepsis secondary to Payne catheter. Cultures showing group D enterococcus IV ceftriaxone. IV fluids -Possible chronic kidney disease from obstruction Bilateral hydronephrosis. Consult urology. Patient does follow with Dr. Porras -Acute kidney injury possibly prerenal component from decreased oral intake and infection/ATN Continue IV fluids -Anorexia likely from underlying UTI Encourage oral intake -Vitamin B-12 deficiency B12 supplement -BPH with urine outflow obstruction Patient has chronic Payne catheter that was replaced today. -Acute hematuria likely traumatic from Payne catheter placement Follow H&H and clinically IV fluids. IV ceftriaxone. Consult urology, ID discussed the care with the patient's daughter in law Fredy over the phone. Repeat labs
[2021-04-20] MEDS: AMPICILLIN-SULBACTAM 3 GM in SODIUM CHLORIDE 0.9% 100 ML IVPB SCH ×2 (15:56→23:34)
[2021-04-20] MEDS: SODIUM CHLORIDE 0.45% 1,000 ML IV SCH (16:01)
[2021-04-21] MEDS: SODIUM CHLORIDE 0.45% 1,000 ML IV SCH ×2 (05:02→22:17)
[2021-04-21 06:07] LABS: Basophils % (A) 0 %; Eosinophils # (A) 0.2 k/uL (0-0.7); Eosinophils % (A) 2 %; HCT 36.6 % (39.0-53.0); HGB 11.5 gm/dL (13.0-17.5); Hypochromasia Slight; Lymphocytes # (A) 1.3 k/uL (1.0-4.8); Lymphocytes % (A) 13 %; MCH 28.8 pg (25.0-35.0); MCHC 31.4 g/dL (31.0-37.0); MCV 91.7 fL (80.0-100.0); Mean Platelet Volume 7.6; Monocytes # (A) 0.8 k/uL (0-1.0); Monocytes % (A) 9 %; Neutrophils # (A) 7.1 k/uL (1.3-7.7); Neutrophils % (A) 74 %; Platelet Count 247 k/uL (150-450); WBC 9.7 k/uL (3.8-10.6)
[2021-04-21 06:32] LABS: African American GFR (CKD) 84 (>60 ml/min/1.73 sqM); Anion Gap 6 mmol/L; Blood Urea Nitrogen 17 mg/dL (9-20); Calcium 8.5 mg/dL (8.4-10.2); Carbon Dioxide 23 mmol/L (22-30); Chloride 108 mmol/L (98-107); Glucose 107 mg/dL (74-99); Non-African American GFR(CKD) 72 (>60 ml/min/1.73 sqM); Potassium 3.7 mmol/L (3.5-5.1); Sodium 137 mmol/L (137-145)
[2021-04-21] MEDS: AMPICILLIN-SULBACTAM 3 GM in SODIUM CHLORIDE 0.9% 100 ML IVPB SCH ×2 (08:44→16:32)
[2021-04-21] MEDS: BICALUTAMIDE 50 MG TAB PO SCH (08:45)
[2021-04-21] MEDS: CYANOCOBALAMIN 500 MCG TAB PO SCH (08:45)
[2021-04-21] MEDS: HYDROcodone/APAP 5-325MG 1 EACH TAB PO SCH ×3 (08:45→22:16)
--- NOTE | 2021-04-21 08:49 | P.CONS ---
History of Present Illness - Reason for Consult Consult date: 04/20/21 UTI Requesting physician: Derek Bolaños - Chief Complaint unable to void x 1 day - History of Present Illness History of present illness : Patient is 89-year-old male with a past medical history significant for urinary retention requiring Payne catheter placement patient was brought to the ER yesterday morning for urinary retention patient son who is an RN took his catheter out and was unable to replace it patient has not voided in 16 to 18 hours before presentation the hospital was complaining of lower abdominal discomfort more of a burning pain intensity 5-6 over 10 no radiation some nausea but no vomiting denies high-grade fever on presentation to the hospital the patient was afebrile and no fever has been recorded subsequently patient did have iron of 22.2 her repeat is 13.3 the endocrine was mildly elevated as well as lactic acid did have a positive UA levy PCR was negative patient urine is showing the gram-negative bacilli and Enterococcus that has prompted this infectious disease consultation Review of system: CONSTITUTIONAL: Positive for weakness denies fever. EYES: No complaint. ENT: No complaint. RESPIRATORY: No complaint. CARDIOVASCULAR: No complaint. GENITOURINARY: As per history of present illness. GASTROINTESTINAL: No complaint. MUSCULOSKELETAL: No complaint. INTEGUMENTARY: No complaint. PSYCHOLOGIC: No complaint. ENDOCRINE: No complaint. NEUROLOGIC: No complaint. Past medical history : Reviewed, documented below Past surgical history : Reviewed, documented below Social history: Reviewed, documented below Medications: Reviewed, as documented below EXAMINATION: Vital sigans= Reviewed and documented below GENERAL DESCRIPTION: Elderly male lying in bed, no distress. No tachypnea or accessory muscle of respiration use. HEENT: Shows Pallor , no scleral icterus. Oral mucous membrane is dry. NECK: Trachea central, no thyromegaly. LUNGS: Unlabored breathing. Clear to auscultation anteriorly. No wheeze or crackle. HEART: S1, S2, regular rate and rhythm. ABDOMEN: Soft, no tenderness , guarding or rigidity EXTREMITIES: No edema of feet. SKIN: No rash, no masses palpable. NEUROLOGICAL: The patient is awake, alert, oriented x3, mood and affect normal. LABS AND RADIOLOGY: Reviewed results see below Assessment : Patient is 89-year male presented to hospital with urinary retention in this patient with a chronic indwelling Payne catheter which was removed in outpatient setting and cannot be replaced patient did have significantly positive UA and did have elevated white count concerning for a symptomatic urinary tract infection with a urine showing both gram-negative and Enterococcus Plan: 1-discontinue Rocephin 2-start the patient on Unasyn 3 g every 8 hours 3-gentle IV fluid We will follow on clinical condition and cultures to further adjust medication if needed Thank you for this consultation we will follow the patient along with you Past Medical History Past Medical History: Cancer, Prostate Disorder Additional Past Medical History / Comment(s): prostate ca History of Any Multi-Drug Resistant Organisms: None Reported Past Surgical History: Hernia Repair Past Anesthesia/Blood Transfusion Reactions: No Reported Reaction Past Psychological History: No Psychological Hx Reported Smoking Status: Former smoker Past Alcohol Use History: Occasional Past Drug Use History: None Reported Medications and Allergies Home Medications Medication Instructions Recorded Confirmed Type Bicalutamide [Casodex] 50 mg PO DAILY 04/19/21 04/19/21 History Cyanocobalamin (Vitamin B-12) 1,000 mcg PO DAILY 04/19/21 04/19/21 History [Vitamin B-12] Furosemide [Lasix] 20 mg PO Q48H 04/19/21 04/19/21 History HYDROcodone/APAP 5-325MG [[place] 1 tab PO TID 04/19/21 04/19/21 History 5-325] Mirabegron [Myrbetriq] 50 mg PO DAILY 04/19/21 04/19/21 History Tamsulosin [Flomax] 0.8 mg PO DAILY 04/19/21 04/19/21 History Allergies Allergy/AdvReac Type Severity Reaction Status Date / Time aspirin Allergy Abdominal Verified 04/19/21 10:33 Pain Physical Exam Vitals: Vital Signs Temp Pulse Resp BP Pulse Ox 04/20/21 12:25 97.8 F 88 17 110/69 95 04/20/21 08:55 88 92/67 04/20/21 08:30 86 18 04/20/21 04:43 98.2 F 86 18 96/60 98 04/19/21 20:00 98.4 F 114 H 18 149/75 98 04/19/21 19:47 114 H 18 04/19/21 17:55 78 92/57 Intake and Output 04/19/21 04/20/21 04/20/21 22:59 06:59 14:59 Intake Total 1560 Output Total 1000 601 Balance 560 -601 Intake: Intake, IV Titration 1560 Amount Sodium Chloride 0.9% 1, 1560 000 ml @ 130 mls/hr IV . Q7H42M [facility] Rx#:[id number] Output: Urine 1000 600 Stool 1 Other: Voiding Method Indwelling Catheter Indwelling Catheter Weight 77.111 kg Results CBC & Chem 7: 04/21/21 05:29 04/21/21 05:29 Labs: Abnormal Lab Results - Last 24 Hours (Table) 04/20/21 04/20/21 Range/Units 04:09 04:09 WBC 13.3 H (3.8-10.6) k/uL RBC 4.02 L (4.30-5.90) m/uL Hgb 11.4 L D (13.0-17.5) gm/dL Hct 36.6 L (39.0-53.0) % Neutrophils # 10.2 H (1.3-7.7) k/uL Monocytes # 1.6 H (0-1.0) k/uL Chloride 108 H (98-107) mmol/L Carbon Dioxide 21 L (22-30) mmol/L BUN 23 H (9-20) mg/dL Glucose 105 H (74-99) mg/dL Calcium 8.3 L (8.4-10.2) mg/dL Microbiology - Last 24 Hours (Table) 04/19/21 07:16 Urine Culture - Preliminary Urine,Voided Gram Neg Bacilli Group D Enterococcus 04/19/21 10:26 Blood Culture - Preliminary Blood No Growth after 24 hours 04/19/21 10:10 Blood Culture - Preliminary Blood No Growth after 24 hours
[2021-04-21] MEDS: NON FORMULARY DRUG (Mirabegron [Myrbetriq] 50 MG Tablet) PO SCH (10:50)
[2021-04-21] MEDS: PHENAZOPYRIDINE 100 MG TAB PO SCH ×3 (12:00→22:20)
[2021-04-21] MEDS: TAMSULOSIN 0.4 MG CAP.ER.24H PO SCH ×2 (12:01→20:25)
--- NOTE | 2021-04-21 15:10 | P.PN ---
Progress Note - Text Progress Note Date: 04/21/21 Chief Complaint: Burning in the urine History of presenting complaint: This is a very pleasant 89-year-old patient who is the son and [id number]. Chronic stable medical conditions include BPH, vitamin B12 deficiency, hard of hearing and does use a walker to baseline. Patient does have a chronic Payne catheter. That is changed intermittently. Patient has been complaining of burning in his penis for last few days. Decreased appetite. No obvious fever and chills. No change in bowel habits. Yesterday his son was not able to place the Payne catheter bag. Presented to the ER. Urine up to be rather infected appearing. Started on IV ceftriaxone. Catheter was replaced. Urine output is somewhat bloody. Patient is accompanied by his daughter. Hard of hearing. April 20: Laying in bed. Does not like hospital for. Urinary symptoms improving. Tired April 21: Laying in bed. Not very keen on hospital food. Hematuria is clearing up. Having some dysuria. pyridium ordered . ID is changed to IV antibiotics to Unasyn. Review of systems: Was done for constitutional, cardiovascular, GI, pulmonary. relevant finding as above Active Medications Acetaminophen (Acetaminophen Tab 325 Mg Tab) 650 mg PO Q6HR PRN PRN Reason: Mild Pain or Fever > 100.5 Hydrocodone Bitart/Acetaminophen (Hydrocodone/Apap 5-325mg 1 Each Tab) 1 each PO TID [facility] Last Admin: 04/21/21 08:45 Dose: 1 each Documented by: Bicalutamide (Bicalutamide 50 Mg Tab) 50 mg PO DAILY [facility] Last Admin: 04/21/21 08:45 Dose: 50 mg Documented by: Calcium Carbonate/Glycine (Calcium Carbonate 500 Mg Chewable) 1,000 mg PO Q4HR PRN PRN Reason: Dyspepsia Cyanocobalamin (Cyanocobalamin 500 Mcg Tab) 1,000 mcg PO DAILY [facility] Last Admin: 04/21/21 08:45 Dose: 1,000 mcg Documented by: Sodium Chloride (Saline 0.45%) 1,000 mls @ 75 mls/hr IV .[id number] [facility] Last Admin: 04/21/21 05:02 Dose: 75 mls/hr Documented by: Ampicillin Sodium/Sulbactam (Sodium 3 gm/ Sodium Chloride) 100 mls @ 200 mls/hr IVPB Q8HR [facility] Last Admin: 04/21/21 08:44 Dose: 200 mls/hr Documented by: Lactulose (Lactulose 20 Gm/30 Ml Cup) 20 gm PO DAILY PRN PRN Reason: Constipation Lorazepam (Lorazepam 0.5 Mg Tab) 0.5 mg PO Q6HR PRN PRN Reason: Anxiety Melatonin (Melatonin 3 Mg Tablet) 3 mg PO HS PRN PRN Reason: Insomnia Naloxone HCl (Naloxone 0.4 Mg/Ml 1 Ml Vial) 0.2 mg IV Q2M PRN PRN Reason: Opioid Reversal Non-Formulary Medication (Mirabegron [Myrbetriq]) 50 mg PO DAILY [facility] Last Admin: 04/21/21 10:50 Dose: Not Given Documented by: Ondansetron HCl (Ondansetron 4 Mg/2 Ml Vial) 4 mg IVP Q8HR PRN PRN Reason: Nausea And Vomiting Phenazopyridine HCl (Phenazopyridine 100 Mg Tab) 100 mg PO TID [facility] Last Admin: 04/21/21 12:00 Dose: 100 mg Documented by: Sodium Biphosphate/Sodium Phosphate (Na Phos,M-B/Na Phos,Di-Ba 133 Ml Enema) 133 ml RECTAL ONCE PRN PRN Reason: Constipation Tamsulosin HCl (Tamsulosin 0.4 Mg Cap.Er.24h) 0.8 mg PO DAILY [facility] Last Admin: 04/21/21 12:01 Dose: 0.8 mg Documented by: Past medical history to include: BPH, urine outflow obstruction with chronic Payne, B12 deficiency, hard of hearing, gait dysfunction uses a walker Social history: This decide and [id number]. Alcohol occasional. Former smoker. Family history: Reviewed, noncontributory to presentation Physical examination: VITAL SIGNS: 99, 94, 17, 10 7 x 62, 97% room air GENERAL:, reclining in bed, comfortable. EYES: Pupils equal. Conjunctiva normal. HEENT: External appearance of nose and ears normal, oral cavity grossly normal hard of hearing. NECK: JVD not raised; masses not palpable. HEART: First and second heart sounds are normal; no edema. LUNGS: Respiratory rate normal; decreased breath sounds. ABDOMEN: Soft, nontender, liver spleen not palpable, no masses palpable. Payne catheter with urine in the Payne bag no blood PSYCH: Alert and oriented x3; mood and affect slightly anxious. MUSCULAR skeletal: Evidence of OA especially the hands INVESTIGATIONS, reviewed in the clinical context: April 21: White count 9.7 hemoglobin 11.5 potassium 3.7 creatinine 0.94 Abdominal ultrasound: Bilateral moderate hydronephrosis Urine culture growing group D enterococcus April 20: White count 13.3 hemoglobin 11.4 platelets 232 potassium 4 BUN 23 creatinine 1.25 White count 22.2 hemoglobin 14.4 platelets 360 sodium 132 potassium 4.5 BUN 26 creatinine 1.71 lactic acid 2.6 UA positive for blood, no questions, WBC, RBC, Coronavirus [PCR]: Not detected EKG tracing personally reviewed by me-sinus tachycardia. Grade 111 Chest x-ray film personally reviewed by me-some interstitial prominence Assessment and plan: -Acute UTI with sepsis secondary to Payne catheter. Cultures showing group D enterococcus IV Unasyn IV fluids -Dysuria from acute UTI Add pyridium -Possible chronic kidney disease from obstruction Bilateral hydronephrosis. Consult urology. Patient does follow with Dr. Porras -Acute kidney injury possibly prerenal component from decreased oral intake and infection/ATN: Better Continue IV fluids -Anorexia likely from underlying UTI Encourage oral intake -Vitamin B-12 deficiency B12 supplement -BPH with urine outflow obstruction New Payne catheter placed in the ER -Acute hematuria likely traumatic from Payne catheter placement: Improved Follow H&H and clinically IV fluids. IV Unasyn. Pending urology input.Add pyridium
--- NOTE | 2021-04-21 19:09 | P.GSCN ---
History of Present Illness Consult date: 04/21/21 Reason for Consult: Hydronephrosis Requesting physician: Derek Bolaños History of present illness: The patient is an 89-year-old white male diagnosed with prostate cancer in 1991. 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 He has been treated with hormone therapy and underwent bilateral orchiectomy in 2003. He has a history of chronic urinary retention being managed with an indwelling Payne catheter. His son, who is a nurse, recently experienced difficulty changing his catheter. He is admitted for a presumed UTI. His Payne catheter has been changed and is draining well. He reports mild penile/infrapubic discomfort. Ultrasound shows bilateral hydronephrosis. His PSA level was 63.85 in July 2020. Review of Systems - Constitutional Denies chills, Denies fever - Genitourinary Reports as per HPI - Musculoskeletal Reports low back pain Past Medical History Past Medical History: Cancer, Prostate Disorder Additional Past Medical History / Comment(s): prostate ca History of Any Multi-Drug Resistant Organisms: None Reported Past Surgical History: Hernia Repair Past Anesthesia/Blood Transfusion Reactions: No Reported Reaction Past Psychological History: No Psychological Hx Reported Smoking Status: Former smoker Past Alcohol Use History: Occasional Past Drug Use History: None Reported Medications and Allergies Home Medications Medication Instructions Recorded Confirmed Type Bicalutamide [Casodex] 50 mg PO DAILY 04/19/21 04/19/21 History Cyanocobalamin (Vitamin B-12) 1,000 mcg PO DAILY 04/19/21 04/19/21 History [Vitamin B-12] Furosemide [Lasix] 20 mg PO Q48H 04/19/21 04/19/21 History HYDROcodone/APAP 5-325MG [[place] 1 tab PO TID 04/19/21 04/19/21 History 5-325] Mirabegron [Myrbetriq] 50 mg PO DAILY 04/19/21 04/19/21 History Tamsulosin [Flomax] 0.8 mg PO DAILY 04/19/21 04/19/21 History Allergies Allergy/AdvReac Type Severity Reaction Status Date / Time aspirin Allergy Abdominal Verified 04/19/21 10:33 Pain Surgical - Exam Vital Signs Temp Pulse Resp BP Pulse Ox 98 F 132 H 18 113/75 98 04/19/21 06:23 04/19/21 06:23 04/19/21 06:23 04/19/21 06:23 04/19/21 06:23 - General well developed, well nourished, no distress - Respiratory normal respiratory effort - Abdomen Abdomen: soft, non tender, no guarding, no rigid, no rebound - Genitourinary normal penis with no external lesions, testicles non-tender - Psychiatric oriented to time, oriented to person, oriented to place, speech is normal, memory intact Results - Labs 04/21/21 05:29 04/21/21 05:29 Abnormal Lab Results - Last 24 Hours (Table) 04/21/21 04/21/21 Range/Units 05:29 05:29 RBC 4.00 L (4.30-5.90) m/uL Hgb 11.5 L (13.0-17.5) gm/dL Hct 36.6 L (39.0-53.0) % Chloride 108 H (98-107) mmol/L Glucose 107 H (74-99) mg/dL Microbiology - Last 24 Hours (Table) 04/19/21 10:10 Blood Culture Gram Stain - Preliminary Blood 04/19/21 10:10 Blood Culture - Final Blood 04/19/21 07:16 Urine Culture - Preliminary Urine,Voided Gram Neg Bacilli Group D Enterococcus 04/19/21 10:26 Blood Culture - Preliminary Blood No Growth after 24 hours Diabetes panel 04/21/21 Range/Units 05:29 Sodium 137 (137-145) mmol/L Potassium 3.7 (3.5-5.1) mmol/L Chloride 108 H (98-107) mmol/L Carbon Dioxide 23 (22-30) mmol/L BUN 17 (9-20) mg/dL Creatinine 0.94 (0.66-1.25) mg/dL Glucose 107 H (74-99) mg/dL Calcium 8.5 (8.4-10.2) mg/dL Calcium panel 04/21/21 Range/Units 05:29 Calcium 8.5 (8.4-10.2) mg/dL Pituitary panel 04/21/21 Range/Units 05:29 Sodium 137 (137-145) mmol/L Potassium 3.7 (3.5-5.1) mmol/L Chloride 108 H (98-107) mmol/L Carbon Dioxide 23 (22-30) mmol/L BUN 17 (9-20) mg/dL Creatinine 0.94 (0.66-1.25) mg/dL Glucose 107 H (74-99) mg/dL Calcium 8.5 (8.4-10.2) mg/dL Adrenal panel 04/21/21 Range/Units 05:29 Sodium 137 (137-145) mmol/L Potassium 3.7 (3.5-5.1) mmol/L Chloride 108 H (98-107) mmol/L Carbon Dioxide 23 (22-30) mmol/L BUN 17 (9-20) mg/dL Creatinine 0.94 (0.66-1.25) mg/dL Glucose 107 H (74-99) mg/dL Calcium 8.5 (8.4-10.2) mg/dL - Imaging US - kidney/bladder: report reviewed Assessment and Plan (1) Malignant neoplasm of prostate Current Visit: Yes Status: Acute Code(s): C61 - MALIGNANT NEOPLASM OF PROSTATE SNOMED Code(s): 962858016 (2) Retention of urine, unspecified Current Visit: Yes Status: Acute Code(s): R33.9 - RETENTION OF URINE, UNSPECIFIED SNOMED Code(s): 135255088 (3) UTI (urinary tract infection) Current Visit: Yes Status: Acute Code(s): N39.0 - URINARY TRACT INFECTION, SITE NOT SPECIFIED SNOMED Code(s): 25208334 Plan: 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 The urine culture is positive, though it is difficult to determine whether this should be considered a UTI or simply colonization, as his symptoms appeared to have been due to a malpositioned Payne catheter. His catheter is now draining well, and it would be reasonable to discharge him home on a quinolone, given that both organisms found a urine culture (Morganella and enterococcus) are sensitive to them. I discussed the finding of hydronephrosis. I explained to Mr. Hernandez that his renal function is currently normal, but that hydronephrosis could compromise his renal function in the future. He declines any further evaluation or treatment for this. Thank you for allowing me to evaluate Mr. Hernandez. Please notify us if we can be of any further assistance. Time with Patient: Greater than 30
--- NOTE | 2021-04-21 22:14 | PN ---
PROGRESS NOTE DATE OF SERVICE: 04/21/2021. REASON FOR FOLLOWUP: Complicated urinary tract infection. INTERVAL HISTORY: Patient is afebrile. The patient is breathing comfortably. The patient denies having any chest pain, shortness of breath or cough. No vomiting. No abdominal pain. No diarrhea. PHYSICAL EXAMINATION: Blood pressure 130/54 with a pulse of 74, temperature 98.5. He is 94% on room air. General description is an elderly male lying in bed in no distress. Respiratory system: Unlabored breathing, clear to auscultation anteriorly. Heart S1, S2. Regular rate and rhythm. Abdomen soft, no tenderness. Extremities: No edema of the feet. LABS: Hemoglobin is 11.5, white count 9.7, creatinine 0.94. Urine showing Morganella Enterococcus. Blood culture showing a gram-positive cocci in clusters. DIAGNOSTIC IMPRESSION AND PLAN: 1. Patient with complicated urinary tract infection with enterococcus faecalis and Morganella. Antibiotic will be adjusted to Zosyn. 2. Positive blood culture with gram-positive cocci in clusters, possible skin contaminant. Blood cultures repeated to document clearance of bacteremia. No need for vancomycin. MMODL / IJN: [id number] /
[2021-04-21] MEDS: PIPERACILLIN-TAZOBACTAM 3.375 GM in SODIUM CHLORIDE 0.9% 100 ML IVPB SCH (23:32)
[2021-04-22 00:15] LABS: Appearance,Urine Turbid (Clear); Bacteria,Urine Occasional /hpf; Bilirubin,Urine 1+ (Negative); Blood,Urine Large (Negative); Color,Urine Dark Brown; Glucose,Urine (UA) Negative (Negative); Ketones,Urine Negative (Negative); Leukocyte Esterase,Urine Large (Negative); Nitrite,Urine Positive (Negative); Protein,Urine 2+ (Negative); RBC,Urine >182 /hpf (0-5); Specific Gravity,Urine 1.018 (1.001-1.035); WBC,Urine >182 /hpf (0-5)
[2021-04-22 05:12] LABS: African American GFR (CKD) 89 (>60 ml/min/1.73 sqM); Anion Gap 8 mmol/L; Blood Urea Nitrogen 13 mg/dL (9-20); Calcium 8.5 mg/dL (8.4-10.2); Carbon Dioxide 21 mmol/L (22-30); Chloride 110 mmol/L (98-107); Glucose 116 mg/dL (74-99); Non-African American GFR(CKD) 77 (>60 ml/min/1.73 sqM); Potassium 3.7 mmol/L (3.5-5.1); Sodium 139 mmol/L (137-145)
[2021-04-22] MEDS: HYDROcodone/APAP 5-325MG 1 EACH TAB PO SCH (06:30)
[2021-04-22] MEDS: NON FORMULARY DRUG (Mirabegron [Myrbetriq] 50 MG Tablet) PO SCH (07:48)
[2021-04-22] MEDS: TAMSULOSIN 0.4 MG CAP.ER.24H PO SCH (08:05)
[2021-04-22] MEDS: PIPERACILLIN-TAZOBACTAM 3.375 GM in SODIUM CHLORIDE 0.9% 100 ML IVPB SCH (08:05)
[2021-04-22] MEDS: BICALUTAMIDE 50 MG TAB PO SCH (08:05)
[2021-04-22] MEDS: CYANOCOBALAMIN 500 MCG TAB PO SCH (08:05)
[2021-04-22] MEDS: PHENAZOPYRIDINE 100 MG TAB PO SCH (08:06)
[2021-04-22 12:25] VITALS: BP 89/53; PULSE 90; RESP 17; TEMP 98.2
--- NOTE | 2021-04-22 13:16 | PN ---
PROGRESS NOTE DATE OF SERVICE: 04/22/2021 REASON FOR FOLLOWUP: Complicated UTI. INTERVAL HISTORY: The patient is afebrile. The patient is currently breathing comfortably. The patient denies having any chest pain, shortness of breath or cough. No abdominal pain or diarrhea. PHYSICAL EXAMINATION: Blood pressure is 97/59, pulse of 70, temperature 98.3. He is 97% on room air. General description is an elderly male lying in bed in no distress. Respiratory system: Unlabored breathing. Clear to auscultation anteriorly. Heart S1, S2. Regular rate and rhythm. Abdomen soft, no tenderness. LABS: Creatinine 0.88. Urine has been Morganella, Enterococcus. Blood culture with micrococcus species. DIAGNOSTIC IMPRESSION AND PLAN: 1. Patient with positive blood culture with micrococcus species, likely skin contaminant. No need for vancomycin. 2. Patient with a complicated urinary tract infection. Urine with Morganella and Enterococcus. Discharge antibiotic will be Cipro and Augmentin. Discussed with the admitting physician. Continue with supportive care. MMODL / IJN: [id number] /
[2021-04-22] MEDS: SODIUM CHLORIDE 0.45% 1,000 ML IV SCH (15:58)
--- NOTE | 2021-04-22 16:42 | P.DS ---
Providers Date of admission: 04/19/21 10:43 Expected date of discharge: 04/22/21 Attending physician: Derek Bolaños Consults: 04/20/21 13:44 Consult Physician Routine Consulting Provider: Toney Doherty Consult Reason/Comments: Bilateral hydronephrosis Do you want consulting provider notified?: Yes 04/20/21 13:45 Consult Physician Routine Consulting Provider: Sheree Somers Consult Reason/Comments: UTI Do you want consulting provider notified?: Yes Primary care physician: [facility] Course: Chief Complaint: Burning in the urine History of presenting complaint: This is a very pleasant 89-year-old patient who is the son and [id number]. Chronic stable medical conditions include BPH, vitamin B12 deficiency, hard of hearing and does use a walker to baseline. Patient does have a chronic Payne catheter. That is changed intermittently. Patient has been complaining of burning in his penis for last few days. Decreased appetite. No obvious fever and chills. No change in bowel habits. Yesterday his son was not able to place the Payne catheter bag. Presented to the ER. Urine up to be rather infected appearing. Started on IV ceftriaxone. Catheter was replaced. Urine output is somewhat bloody. Patient is accompanied by his daughter. Hard of hearing. Other than the fact he did not like hospital food patient was started feeling much better. Kidney function improved with bowel BUN and creatinine coming down. Urine culture was positive for Morganella morganii and Enterococcus faecalis. Patient received IV Unasyn. I did update patient's granddaughter about the clinical course. Patient was seen by Dr. Gr from urology. Not for any further intervention. [Patient was diagnosed with prostate cancer in 1991. 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 He was treated with hormone therapy and bilateral orchiectomy 2003. 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 Levi from ID. Keepy Payne catheter in. Follow-up with urology outpatient. He was given a few tablets of pyridium Discussion and discharge planning more than 35 minutes Consultation: Dr. Somers from [facility] Dr. Gr from urology Past medical history to include: BPH, urine outflow obstruction with chronic Payne, B12 deficiency, hard of hearing, gait dysfunction uses a walker Social history: This decide and [id number]. Alcohol occasional. Former smoker. Family history: Reviewed, noncontributory to presentation Physical examination: VITAL SIGNS: 98.2, 90, 17, 89 x 53, 98% room air GENERAL:, reclining in bed, comfortable. EYES: Pupils equal. Conjunctiva normal. HEENT: External appearance of nose and ears normal, oral cavity grossly normal hard of hearing. NECK: JVD not raised; masses not palpable. HEART: First and second heart sounds are normal; no edema. LUNGS: Respiratory rate normal; decreased breath sounds. ABDOMEN: Soft, nontender, liver spleen not palpable, no masses palpable. Payne catheter PSYCH: Alert and oriented x3; mood and affect slightly anxious. MUSCULAR skeletal: Evidence of OA especially the hands INVESTIGATIONS, reviewed in the clinical context: April 22: Potassium 3.7 creatinine 0.88 April 21: White count 9.7 hemoglobin 11.5 potassium 3.7 creatinine 0.94 Abdominal ultrasound: Bilateral moderate hydronephrosis Urine culture growing Enterococcus faecalis, Morganella morganii April 20: White count 13.3 hemoglobin 11.4 platelets 232 potassium 4 BUN 23 creatinine 1.25 White count 22.2 hemoglobin 14.4 platelets 360 sodium 132 potassium 4.5 BUN 26 creatinine 1.71 lactic acid 2.6 UA positive for blood, no questions, WBC, RBC, Coronavirus [PCR]: Not detected EKG tracing personally reviewed by me-sinus tachycardia. Grade 111 Chest x-ray film personally reviewed by me-some interstitial prominence Assessment and plan: -Acute UTI with sepsis secondary to Payne catheter. Cultures showing Enterococcus faecalis, Morganella morganii IV Unasyn IV fluids. Discharged on Augmentin and ciprofloxacin for 7 days -Dysuria from acute UTI pyridium - Bilateral hydronephrosis. From prostate cancer. Patient previously has had hormone therapy and bilateral oophorectomy. Patient does follow with Dr. 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 Patient has chronic Payne. New Payne catheter placed in the ER -Acute hematuria likely traumatic from Payne catheter placement: Improved Follow H&H and clinically Disposition: Home Plan - Discharge Summary New Discharge Prescriptions: New Ciprofloxacin HCl [Cipro] 500 mg PO BID 7 Days #14 tab Amoxic-Pot Clav 875-125Mg [Augmentin 875-125] 1 tab PO Q12HR 7 Days #14 tab Continue Tamsulosin [Flomax] 0.8 mg PO DAILY Mirabegron [Myrbetriq] 50 mg PO DAILY Bicalutamide [Casodex] 50 mg PO DAILY HYDROcodone/APAP 5-325MG [[place] 5-325] 1 tab PO TID Cyanocobalamin (Vitamin B-12) [Vitamin B-12] 1,000 mcg PO DAILY Discontinued Furosemide [Lasix] 20 mg PO Q48H Discharge Medication List Bicalutamide [Casodex] 50 mg PO DAILY 04/19/21 [History] Cyanocobalamin (Vitamin B-12) [Vitamin B-12] 1,000 mcg PO DAILY 04/19/21 [History] HYDROcodone/APAP 5-325MG [[place] 5-325] 1 tab PO TID 04/19/21 [History] Mirabegron [Myrbetriq] 50 mg PO DAILY 04/19/21 [History] Tamsulosin [Flomax] 0.8 mg PO DAILY 04/19/21 [History] Amoxic-Pot Clav 875-125Mg [Augmentin 875-125] 1 tab PO Q12HR 7 Days #14 tab 04/22/21 [Rx] Ciprofloxacin HCl [Cipro] 500 mg PO BID 7 Days #14 tab 04/22/21 [Rx] Follow up Appointment(s)/Referral(s): Mathew Butcher MD [Primary Care Provider] - 1-2 days Saji Porras MD [STAFF PHYSICIAN] - 05/08/21 9:30 am Patient Instructions/Handouts: Hydronephrosis (ED)
== END 2021-04-22 16:30 | disposition home or self-care (01) | DRG 698 ==
LOC: EC 06:11 → 5NMEDONC 10:43
PROVIDERS: ADMIT Hospitalist; ATTEND Hospitalist
DX: T83.511A Infection and inflammatory reaction due to indwelling urethral catheter, initial encounter (principal); A41.89 Other specified sepsis; E87.2 Acidosis; N13.6 Pyonephrosis; N17.9 Acute kidney failure, unspecified; S37.29XA Other injury of bladder, initial encounter; R33.9 Retention of urine, unspecified; E53.8 Deficiency of other specified B group vitamins; H91.90 Unspecified hearing loss, unspecified ear; N40.1 Benign prostatic hyperplasia with lower urinary tract symptoms; Z66 Do not resuscitate; Z79.899 Other long term (current) drug therapy; Z85.46 Personal history of malignant neoplasm of prostate; Z87.891 Personal history of nicotine dependence; R31.9 Hematuria, unspecified; B95.2 Enterococcus as the cause of diseases classified elsewhere; R63.0 Anorexia; Z68.24 Body mass index [BMI] 24.0-24.9, adult; Z20.822 Contact with and (suspected) exposure to COVID-19; N18.9 Chronic kidney disease, unspecified; B96.89 Other specified bacterial agents as the cause of diseases classified elsewhere; Z90.79 Acquired absence of other genital organ(s); X58.XXXA Exposure to other specified factors, initial encounter
CPT/HCPCS: 36415; 71046; 76770; 80048; 80053; 81001; 83605; 83735; 85025; 87040; 87077; 87086; 87186; 87635; 93005; 96360; 96361; 99285